=== PATIENT | male | born 2000 | race Caucasian/White ===

== ENCOUNTER 2018-12-25 12:13 | Emergency (ER) | payer BC ==
[2018-12-25 13:20] LABS: ADD MAN DIFF? NO
[2018-12-25 13:21] LABS: BASOPHILS % 0.5 % (0.0-2.0); EOSINOPHILS # 0.1 10^3/ul (0.0-0.5); EOSINOPHILS % 1.1 % (0.0-7.0); HEMATOCRIT 45.4 % (42.0-52.0); HEMOGLOBIN 15.4 g/dl (14.0-18.0); LYMPHOCYTES # 1.9 10^3/ul (0.8-2.9); MEAN CORPUSCULAR HEMOGLOBIN 30.1 pg (29.0-33.0); MEAN CORPUSCULAR HGB CONC 33.9 g/dl (32.0-37.0); MEAN CORPUSCULAR VOLUME 88.8 fl (72.0-104.0); MEAN PLATELET VOLUME 9.4 fl (7.4-10.4); MONOCYTE # 0.6 10^3/ul (0.3-0.9); MONOCYTES % 7.1 % (0.0-13.0); NEUTROPHIL # 5.6 10^3/ul (1.6-7.5); NEUTROPHILS % 67.9 % (30.0-74.0); PLATELET COUNT 240 10^3/UL (140-415); RED BLOOD COUNT 5.11 10^6/ul (4.70-6.10); RED CELL DISTRIBUTION WIDTH 11.8 % (11.5-14.5)
[2018-12-25 13:21] LABS: WHITE BLOOD COUNT 8.3 10^3/ul (4.8-10.8)
[2018-12-25 13:34] LABS: ANION GAP 6 (5-13); BLOOD UREA NITROGEN 18 mg/dl (7-20); CALCIUM 9.5 mg/dl (8.4-10.2); CARBON DIOXIDE 30 mmol/L (21-31); CHLORIDE 105 mmol/L (97-110); Estimated GFR > 60 mL/min (>60); GLUCOSE 133 mg/dl (70-220); POTASSIUM 4.6 mmol/L (3.5-5.1); SODIUM 141 mmol/L (135-144)
[2018-12-25 13:37] LABS: C-REACTIVE PROTEIN 0.7 mg/dl (0.0-0.9)
[2018-12-25 13:37] LABS: URIC ACID 7.1 mg/dl (3.1-7.9)
[2018-12-25 14:27] LABS: ERYTHROCYTE SEDIMENTATION RATE 2 mm/Hr (0-15)
== END 2018-12-25 14:33 | disposition home or self-care (01) ==
LOC: FTE 14:33
DX: M25.562 Pain in left knee (principal)
CPT/HCPCS: 29505; 73562; 80048; 84560; 85025; 85651; 86140; 99284-25